=== PATIENT | male | born 1985 | race African-American/Black ===

== ENCOUNTER 2017-06-09 20:43 | Emergency (ER) | payer BC ==
[2017-06-09 21:37] LABS: BASOPHILS 0 % (0-2); EOSINOPHILS 0.3 % (0-7); HEMATOCRIT 44.9 % (42.0-54.0); HEMOGLOBIN 15.2 g/dL (13.5-17.5); IMMATURE GRANULOCYTES 0.2 % (0-5); LYMPHOCYTES 11.7 % (15-50); MCH 29.1 pg (26.0-34.0); MCHC 33.9 g/dL (31.0-37.0); MONOCYTES 7.9 % (2-11); NEUTROPHILS 79.9 % (40-80); PLATELET COUNT 184 10x3/uL (130-400); RBC 5.22 10x6/uL (4.20-6.10); RDW 12.3 % (11.5-14.5); WBC 8.7 10x3/uL (4.8-10.8)
[2017-06-09 21:39] LABS: APPEARANCE CLEAR (CLEAR); BILIRUBIN NEGATIVE (NEGATIVE); COLOR YELLOW (YELLOW); GLUCOSE NEGATIVE (NEGATIVE); KETONE NEGATIVE (NEGATIVE); NITRITE NEGATIVE (NEGATIVE); PROTEIN NEGATIVE (NEGATIVE); UROBILINOGEN NORMAL (NORMAL)
[2017-06-09 21:44] LABS: UDS - AMPHET NEGATIVE QUAL (NEGATIVE); UDS - BARB NEGATIVE QUAL (NEGATIVE); UDS - BENZO NEGATIVE QUAL (NEGATIVE); UDS - COCAINE NEGATIVE QUAL (NEGATIVE); UDS - OPIATE NEGATIVE QUAL (NEGATIVE); UDS - PCP NEGATIVE QUAL (NEGATIVE); UDS - THC NEGATIVE QUAL (NEGATIVE)
[2017-06-09 21:49] LABS: ALBUMIN 4.3 g/dL (3.4-5.0); ALKALINE PHOSPHATASE 44 U/L (46-116); ALT (SGPT) 29 U/L (10-68); BILIRUBIN - TOTAL 0.59 mg/dL (0.2-1.3); CALC OSMOLALITY 273 mosm/kg (275-300); CARBON DIOXIDE 29.5 mmol/L (21.0-32.0); CHLORIDE - SERUM 100 mmol/L (98-107); CREATININE - SERUM 1.1 mg/dL (0.6-1.3); GLUCOSE 104 mg/dL (74-106); POTASSIUM - SERUM 3.7 mmol/L (3.5-5.1); PROTEIN - SERUM 8.5 g/dL (6.4-8.2); SODIUM 137 mmol/L (136-145); UREA NITROGEN 12 mg/dL (7-18); eGFR NON AFRICAN AMERICAN 83 mL/min (90-120)
== END 2017-06-09 23:15 | disposition home or self-care (01) ==
LOC: D.ER 20:43
PROVIDERS: Family Medicine
DX: R51 Headache (principal); R11.10 Vomiting, unspecified; I10 Essential (primary) hypertension

== ENCOUNTER 2019-04-11 09:07 | Emergency (ER) | payer BC ==
[~2019-04-11] VITALS: Ht 182.9 cm; Wt 86.4 kg
[2019-04-11 09:32] VITALS: Ht 182.9 cm; Wt 86.4 kg
[2019-04-11] MEDS ORDERED: [UNRECOGNIZED DRUG - REMARK] (09:33)
[2019-04-11] MEDS ORDERED: NORVASC5 MG PO (10:33)
[2019-04-11 12:24] VITALS: BP 142/105
== END 2019-04-11 11:20 | disposition home or self-care (01) ==
LOC: D.ER 09:07
DX: G43.009 Migraine without aura, not intractable, without status migrainosus (principal); I10 Essential (primary) hypertension